=== PATIENT | male | born 1975 | race Caucasian/White ===

== ENCOUNTER 2016-12-01 17:20 | Emergency (ER) | payer OTHER | END 2016-12-01 17:23 | disposition left against medical advice (07) | LOC: EMS 17:23 | DX: Z98.890 Other specified postprocedural states (principal); Z53.21 Procedure and treatment not carried out due to patient leaving prior to being seen by health care provider ==

== ENCOUNTER 2018-02-16 11:02 | Emergency (ER) | payer OTHER ==
[~2018-02-16] VITALS: Ht 170.2 cm; Wt 72.7 kg
[2018-02-16 11:14] VITALS: BP 111/83
== END 2018-02-16 12:10 | disposition left against medical advice (07) ==
LOC: EMS 11:03
DX: L02.413 Cutaneous abscess of right upper limb (principal); Z53.21 Procedure and treatment not carried out due to patient leaving prior to being seen by health care provider

== ENCOUNTER 2018-02-20 13:04 | Emergency (ER) | payer OTHER ==
[~2018-02-20] VITALS: Ht 170.2 cm; Wt 70.5 kg
[2018-02-20] MEDS ORDERED: SULFAMETHOX/TRIMETH DS 800-160 MG/TABLET PO ONE (13:30)
[2018-02-20] MEDS ORDERED: PERTUSS(ACELL),DIPH,TET VAC/PF 0.5 ML VIAL IM ONE (13:30)
[2018-02-20] MEDS ORDERED: LIDOCAINE/PF 1% 5 ML VIAL INJ ONE (13:30)
[2018-02-20] MEDS ORDERED: CEPHALEXIN MONOHYDRATE 500 MG CAPSULE PO ONE (13:30)
[2018-02-20] MEDS ORDERED: POVIDONE-IODINE 10% 15 ML SOLUTION UD TP ONE (13:45)
[2018-02-20 14:59] VITALS: BP 132/75
== END 2018-02-20 15:13 | disposition home or self-care (01) ==
LOC: EMS 13:05
DX: L02.413 Cutaneous abscess of right upper limb (principal); L03.113 Cellulitis of right upper limb; R03.0 Elevated blood-pressure reading, without diagnosis of hypertension; F17.210 Nicotine dependence, cigarettes, uncomplicated; F19.90 Other psychoactive substance use, unspecified, uncomplicated; Z59.0 Homelessness
CPT/HCPCS: 10060; 90471; 90715; 99283; J3490

== ENCOUNTER 2018-02-27 17:41 | Emergency (ER) | payer OTHER ==
[~2018-02-27] VITALS: Ht 170.2 cm; Wt 72.7 kg
[2018-02-27 17:47] VITALS: BP 151/90
[2018-02-27] MEDS ORDERED: SULFAMETHOX/TRIMETH DS 800-160 MG/TABLET PO ONE (18:30)
[2018-02-27] MEDS ORDERED: CEPHALEXIN MONOHYDRATE 500 MG CAPSULE PO ONE (18:30)
== END 2018-02-27 18:46 | disposition home or self-care (01) ==
LOC: EMS 17:42
DX: L02.413 Cutaneous abscess of right upper limb (principal); F17.210 Nicotine dependence, cigarettes, uncomplicated; F15.90 Other stimulant use, unspecified, uncomplicated

== ENCOUNTER 2018-03-31 00:31 | Emergency (ER) | payer OTHER ==
[~2018-03-31] VITALS: Ht 170.2 cm; Wt 72.7 kg
[2018-03-31] MEDS ORDERED: ACETAMINOPHEN 325 MG TABLET PO ONE (01:15)
[2018-03-31] MEDS ORDERED: ONDANSETRON HCL 4 MG TABLET PO ONE (01:15)
[2018-03-31 01:25] LABS: APPEARANCE,URINE CLOUDY (CLEAR); BILIRUBIN,URINE NEGATIVE (NEGATIVE); GLUCOSE, URINE (UA) NEGATIVE (NEGATIVE); KETONES,URINE NEGATIVE (NEGATIVE); LEUKOCYTE ESTERASE ,URINE NEGATIVE (NEGATIVE); NITRATE,URINE NEGATIVE (NEGATIVE); OCCULT BLOOD,URINE NEGATIVE (NEGATIVE); PH,URINE 7.5 (5.0-8.0); PROTEIN,URINE NEGATIVE (NEGATIVE); UROBILINOGEN,URINE 0.2 mg/dL (<=1.0)
[2018-03-31 01:44] LABS: BASOPHILS % (AUTO) 0.6 % (0.0-2.0); EOSINOPHILS % (AUTO) 2.4 % (1.0-6.0); HEMATOCRIT 39.9 % (41-53); HEMOGLOBIN 13.7 g/dL (13.5-17.5); LYMPHOCYTES # (AUTO) 1.4 K/uL (1.0-4.8); LYMPHOCYTES % (AUTO) 19.2 % (22.0-44.0); MEAN CORPUSCULAR HEMOGLOBIN 32.3 pg (26.0-34.0); MEAN CORPUSCULAR HGB CONC 34.3 G/dL (31.0-37.0); MEAN CORPUSCULAR VOLUME 94 fL (80-100); MONOCYTES # (AUTO) 0.6 K/uL (0.1-1.0); MONOCYTES % (AUTO) 7.5 % (2.0-9.0); NEUTROPHILS # (AUTO) 5.3 K/uL (1.8-7.7); NEUTROPHILS % (AUTO) 70.3 % (40.0-70.0); PLATELET COUNT (AUTO) 311 K/uL (150-450); RED BLOOD CELL COUNT(AUTO) 4.23 MIL/uL (4.50-5.90); RED CELL DISTRIBUTION WIDTH 13.5 % (11.5-14.5)
[2018-03-31] MEDS ORDERED: PB/HYOSCY/ATR/SCOP/LIDO/MAALOX 55 ML BOTTLE PO ONE (01:45)
[2018-03-31 01:54] LABS: ANION GAP 4 mmol/L (8-16); CALCIUM, TOTAL 8.5 mg/dL (8.8-10.5); CARBON DIOXIDE 34 mmol/L (22-29); CHLORIDE 101 mmol/L (98-107); CREATININE 0.82 mg/dL (0.60-1.30); GLOMERULAR FILTR. RATE CALC > 60 mL/min (>60); GLUCOSE,RANDOM 123 mg/dL (70-110); POTASSIUM 4.1 mmol/L (3.5-5.1); SODIUM SERUM 139 mmol/L (136-145); UREA NITROGEN, BLOOD 16 mg/dL (7-18)
[2018-03-31 02:00] LABS: ALANINE AMINOTRANSFERASE 28 U/L (12-78); ALBUMIN 3.5 g/dL (3.4-5.0); ALKALINE PHOSPHATASE 112 U/L (46-116); ASPARTATE AMINOTRANSFERASE 19 U/L (15-37); BILIRUBIN,TOTAL 0.3 mg/dL (0.1-1.0); LIPASE 455 U/L (73-393)
[2018-03-31] MEDS ORDERED: IOVERSOL 350 MG/ML 100 ML VIAL ONE (02:17)
[2018-03-31] MEDS ORDERED: SODIUM CHLORIDE 0.9% 100 ML ONE (02:18)
[2018-03-31 03:47] VITALS: BP 153/94
== END 2018-03-31 04:17 | disposition home or self-care (01) ==
LOC: EMS 00:32
DX: K52.9 Noninfective gastroenteritis and colitis, unspecified (principal); K85.90 Acute pancreatitis without necrosis or infection, unspecified; K59.00 Constipation, unspecified; F17.210 Nicotine dependence, cigarettes, uncomplicated
CPT/HCPCS: 36415; 74177; 80053; 81003; 83690; 85025; 99284; J7050; Q0162; Q9967

== ENCOUNTER 2018-04-09 22:45 | Emergency (ER) | payer OTHER | END 2018-04-09 23:30 | disposition left against medical advice (07) | LOC: EMS 22:46 | DX: M79.673 Pain in unspecified foot (principal); Z53.21 Procedure and treatment not carried out due to patient leaving prior to being seen by health care provider ==

== ENCOUNTER 2018-09-05 23:49 | Emergency (ER) | payer SELFPAY | END 2018-09-06 01:25 | disposition left against medical advice (07) | LOC: EMS 23:52 | DX: R51 Headache (principal); Z53.21 Procedure and treatment not carried out due to patient leaving prior to being seen by health care provider ==